=== PATIENT | male | born 1995 | race Asian ===

== ENCOUNTER 2021-01-07 08:00 | Outpatient (CLI) | payer OTHER | END 2021-01-07 23:59 | disposition home or self-care (01) | LOC: LAB.N 08:00 | PROVIDERS: ATTEND Physician Assistant | DX: R05.9 Cough, unspecified (principal); Z20.822 Contact with and (suspected) exposure to COVID-19 ==

== ENCOUNTER 2021-08-05 08:00 | Outpatient (CLI) | payer OTHER ==
--- NOTE | 2021-08-05 13:13 | XRAY Report ---
PROCEDURE: Ankle 3 View RT INDICATIONS: ANKLE JOINT PAIN, RIGHT TECHNIQUE: 3 views of the ankle were acquired. COMPARISON: None FINDINGS: Bones: No fractures or dislocations. Ankle mortise is normally aligned. No suspicious bony lesions . Soft tissues: No tibiotalar joint effusion. Achilles tendon appears normal. Mild lateral soft tiss ue swelling IMPRESSION: Soft tissue swelling without fracture or foreign body Reviewed by: Peterson Pang MD on 08/05/2021 12:12 PM AKDT Approved by: Peterson Pang MD on 08/05/2021 12:12 PM AKDT Station ID: [id number]
== END 2021-08-05 23:59 | disposition home or self-care (01) ==
LOC: DI.N 08:00
PROVIDERS: ATTEND Registered Nurse
DX: M25.571 Pain in right ankle and joints of right foot (principal); M79.89 Other specified soft tissue disorders